=== PATIENT | male | born 1965 ===

== ENCOUNTER 2016-08-09 19:30 | Emergency (ER) | payer BC ==
[2016-08-09 19:40] VITALS: TEMP 98.1
[2016-08-09] MEDS ORDERED: Sodium Chloride 0.9% 1,000 ML IV STA ×2 (19:54→20:40)
--- NOTE | 2016-08-09 20:16 | ED PDOC ---
HPI: Back Time Seen by Provider: 08/09/16 20:14 Chief Complaint (Nursing): Back Pain Chief Complaint (Provider): back pain History Per: Patient History/Exam Limitations: no limitations Additional Complaint(s): 51yo M in ED for eval of lower back pain acute .5hrs ago-without acute injury/ fall. admits to feeling nausea admits to radiation of pain to abdominal area pt with hx fof back pain. no fever chills. Past Medical History Reviewed: Historical Data, Nursing Documentation, Vital Signs Vital Signs: Last Vital Signs Temp 98.1 F 08/09/16 19:39 Pulse Resp 24 08/09/16 19:39 BP Pulse Ox 100 08/09/16 19:39 - Medical History PMH: No Chronic Diseases - Family History Family History: States: No Known Family Hx - Home Medications Home Medications: Ambulatory Orders Medication Instructions Recorded Ciprofloxacin [Cipro] 500 mg PO BID #14 tab 08/09/16 Ondansetron [Zofran] 4 mg PO Q8H #12 tab 08/09/16 Tamsulosin [Flomax] 0.4 mg PO DAILY #14 cap 08/09/16 Tramadol HCl [Ultram] 50 mg PO Q6 #15 tab 08/09/16 - Allergies Allergies/Adverse Reactions: Allergies Allergy/AdvReac Type Severity Reaction Status Date / Time No Known Allergies Allergy Verified 08/09/16 19:53 Review of Systems ROS Statement: Except As Marked, All Systems Reviewed And Found Negative Constitutional: Negative for: Fever, Chills Gastrointestinal: Positive for: Nausea, Abdominal Pain. Negative for: Vomiting Musculoskeletal: Positive for: Back Pain Physical Exam - Reviewed Nursing Documentation Reviewed: Yes Vital Signs Reviewed: Yes - Physical Exam Appears: Positive for: Non-toxic, In Acute Distress Head Exam: Positive for: ATRAUMATIC, NORMAL INSPECTION, NORMOCEPHALIC Skin: Positive for: Normal Color, Warm, DRY Cardiovascular/Chest: Positive for: Regular Rate, Rhythm Respiratory: Positive for: CNT, Normal Breath Sounds Gastrointestinal/Abdominal: Positive for: Normal Exam, Bowel Sounds, Soft. Negative for: Tenderness Back: Positive for: R CVA Tenderness Extremity: Positive for: Normal ROM Neurologic/Psych: Positive for: Alert, Oriented - Laboratory Results Result Diagrams: 08/09/16 20:08 08/09/16 20:08 - ECG O2 Sat by Pulse Oximetry: 100 - CT Scan/US ct sccna Other Rad Studies (CT/US): Radiology Report Reviewed (1-2 mm obstructing stone. ) - Progress ED Course And Treament: Ct scan and labs torodol IV and NS Re-evaluation Time: 20:41 Condition: Improved Medical Decision Making Medical Decision Making: dx: renal stone tx: in ED given fluids, flmoax and torodol will be d/c with ultram, zofran and flomax and cipro with f.u with pmd/ urologist. Disposition - Clinical Impression Clinical Impression: Renal stone - Patient ED Disposition Is Patient to be Admitted: No Counseled Patient/Family Regarding: Studies Performed, Diagnosis, Need For Followup, Rx Given - Disposition Referrals: Richi Bergman MD [Primary Care Provider] - Brayan Story MD [Medical Doctor] - Disposition: Routine/Home Disposition Time: 20:40 Condition: STABLE Prescriptions: Ciprofloxacin [Cipro] 500 mg PO BID #14 tab Tamsulosin [Flomax] 0.4 mg PO DAILY #14 cap Tramadol HCl [Ultram] 50 mg PO Q6 #15 tab Ondansetron [Zofran] 4 mg PO Q8H #12 tab Instructions: Kidney Stones (ED) Forms: [facility] ED School/Work Excuse
[2016-08-09 20:24] LABS: BASO # 0.1 K/uL (0.0-0.2); BASO % 0.5 % (0.0-2.0); EOS # 0.1 K/uL (0.0-0.7); EOS % 0.8 % (0.0-4.0); HEMATOCRIT 45.8 % (35.0-51.0); LYMPH # 4.6 K/uL (1.0-4.3); LYMPH % 41.6 % (20.0-40.0); MEAN CELL VOLUME 97.2 fl (80.0-94.0); MEAN CORPUSCULAR HEMOGLOBIN 32.2 pg (27.0-31.0); MEAN CORPUSCULAR HGB CONC 33.1 g/dL (33.0-37.0); MEAN PLATELET VOLUME 7.1 fl (7.2-11.7); MONO % 8.7 % (0.0-10.0); NEUT # 5.4 K/uL (1.8-7.0); NEUT % 48.4 % (50.0-75.0); NRBC % 0.1 % (0.0-0.0); RED CELL DISTRIBUTION WIDTH 13.1 % (11.5-14.5); WHITE BLOOD COUNT 11.1 K/uL (4.8-10.8)
--- NOTE | 2016-08-09 20:36 | CT ---
EXAM: CT Abdomen and Pelvis Without Intravenous Contrast CLINICAL HISTORY: 51 years old, male; Pain; Abdominal pain; Flank; Right; Additional info: Right flank pain TECHNIQUE: Axial computed tomography images of the abdomen and pelvis without intravenous contrast. This CT exam was performed using one or more of the following dose reduction techniques: automated exposure control, adjustment of the mA and/or kV according to patient size, and/or use of iterative reconstruction technique. Coronal and sagittal reformatted images were created and reviewed. EXAM DATE/TIME: 08/09/2016 7:54 PM COMPARISON: No relevant prior studies available. FINDINGS: LOWER THORAX: No infiltrate seen in the lung bases. ABDOMEN: LIVER: No acute abnormality of the liver identified. GALLBLADDER AND BILE DUCTS: No CT evidence of acute cholecystitis. No evidence of significant biliary ductal dilatation. PANCREAS: No CT evidence of acute pancreatitis. SPLEEN: No acute abnormality of the spleen identified. ADRENALS: No acute abnormality of the adrenal glands identified. KIDNEYS AND URETERS: Mild right hydroureteronephrosis. This is suspected to be due to to a punctate (1-2 mm) obstructing stone at the right UVJ, seen only on the coronal reformats, image 76/series 601. Best seen on image 46 of series 602, there is an indeterminate 1.3 cm right renal lesion, arising from the right kidney upper pole posteriorly, which is not definitely a cyst given its density. Recommend follow-up renal protocol CT or MRI for further evaluation, on a nonemergent basis, unless otherwise clinically indicated. Also seen is a small low density right renal lesion, most likely a cyst. Bilateral perinephric stranding, a nonspecific finding. STOMACH AND BOWEL: Scattered colonic diverticulosis, without evidence of diverticulitis. Otherwise, no significant abnormality of the bowel is identified. No evidence of small bowel obstruction. No acute abnormality of the stomach or duodenum identified. APPENDIX: Appendix is seen, and is within normal limits in appearance. PELVIS: BLADDER: No acute abnormality of the bladder identified. REPRODUCTIVE: No acute abnormality of the reproductive organs is seen. ABDOMEN and PELVIS: INTRAPERITONEAL SPACE: No evidence of free intraperitoneal air or fluid. BONES/JOINTS: No acute fractures or other acute bony abnormality noted. SOFT TISSUES: Bilateral fat-containing inguinal hernias. Small umbilical hernia, containing only fat. VASCULATURE: No evidence of abdominal aortic aneurysm. No evidence of periaortic hemorrhage. LYMPH NODES: No evidence of diffuse lymphadenopathy. IMPRESSION: - Mild right hydroureteronephrosis, suspected to be due to a punctate (1-2 mm) obstructing stone at the right UVJ. - Otherwise, no evidence of significant acute process on this unenhanced exam. - Incidental indeterminate right renal lesion. See above recommendations. - See above for remaining findings.
[2016-08-09 20:48] LABS: ALKALINE PHOSPHATASE 71 U/L (38-126); ALT/SGPT 32 U/L (21-72); AST/SGOT 36 U/L (17-59); BILIRUBIN,TOTAL 0.6 mg/dl (0.2-1.3); BLOOD UREA NITROGEN 20 mg/dl (9-20); CALCIUM 9.7 mg/dL (8.4-10.2); CARBON DIOXIDE 28 mmol/L (22-30); CHLORIDE 102 mmol/L (98-107); GFR AFRICAN-AMERICAN > 60; GLUCOSE,RANDOM 117 mg/dL (75-110); POTASSIUM 4.6 MMOL/L (3.6-5.0); SODIUM 146 mmol/l (132-148); TOTAL PROTEIN 8.6 G/DL (6.3-8.2)
[2016-08-09 20:54] VITALS: BP 139/88; PULSE 65; RESP 18
[2016-08-09 21:11] VITALS: O2SAT 100
[2016-08-09 23:03] LABS: RBC URINE 11 /hpf (0-3); URINE BILIRUBIN NEGATIVE (NEGATIVE); URINE BLOOD MODERATE (NEGATIVE); URINE COLOR YELLOW (YELLOW); URINE GLUCOSE (UA) NEG (Normal); URINE KETONE NEGATIVE (NEGATIVE); URINE LEUKOCYTE ESTERASE NEG Leu/uL (Negative); URINE PROTEIN NEGATIVE (NEGATIVE); URINE UROBILINOGEN 0.2-1.0 mg/dL (0.2-1.0)
== END 2016-08-09 22:37 | disposition home or self-care (01) ==
LOC: H.ER 19:30
DX: N20.0 Calculus of kidney (principal)
CPT/HCPCS: 74176; 80053; 81003; 85025; 96361; 96374; 99283; J1885; J7040

== ENCOUNTER 2017-04-20 18:01 | Emergency (ER) | payer BC ==
[2017-04-20 18:21] VITALS: BP 131/83; PULSE 84; RESP 16; TEMP 99.2; O2SAT 100
--- NOTE | 2017-04-20 18:50 | ED PDOC ---
Lower Extremity Pain/Injury Time Seen by Provider: 04/20/17 18:28 Chief Complaint (Nursing): Lower Extremity Problem/Injury Chief Complaint (Provider): Right knee pain and swelling History Per: Patient History/Exam Limitations: no limitations Onset/Duration Of Symptoms: Days (x1 week) Current Symptoms Are (Timing): Still Present Additional Complaint(s): 52 y/o male presents to the emergency department with complaint of right knee pain and swelling after he twisted it about 1 week ago. Patient is able to walk but has pain when doing so. Ibuprofen has provided minimal pain relief. He made an appointment with an orthopedist but this appointment is not until May 06. He presents to emergency department for further evaluation of knee pain. No medical attention was sought at time of injury. Past Medical History Reviewed: Historical Data, Nursing Documentation, Vital Signs Vital Signs: Last Vital Signs Temp 99.2 F 04/20/17 18:17 Pulse 84 04/20/17 18:17 Resp 16 04/20/17 18:17 BP 131/83 04/20/17 18:17 Pulse Ox 100 04/20/17 18:17 - Medical History PMH: No Chronic Diseases - Surgical History Other surgeries: Left knee surgery - Family History Family History: States: No Known Family Hx - Living Arrangements Living Arrangements: With Family - Social History Current smoker - smoking cessation education provided: No Alcohol: None Drugs: Denies - Home Medications Home Medications: Ambulatory Orders Medication Instructions Recorded Ciprofloxacin [Cipro] 500 mg PO BID #14 tab 08/09/16 Ondansetron [Zofran] 4 mg PO Q8H #12 tab 08/09/16 Tamsulosin [Flomax] 0.4 mg PO DAILY #14 cap 08/09/16 Tramadol HCl [Ultram] 50 mg PO Q6 #15 tab 08/09/16 Ibuprofen [Motrin Tab] 800 mg PO Q8 PRN #20 tab 04/20/17 - Allergies Allergies/Adverse Reactions: Allergies Allergy/AdvReac Type Severity Reaction Status Date / Time No Known Allergies Allergy Verified 04/20/17 18:17 Wells Criteria for PE - Wells Criteria for Pulmonary Embolism Clinical Signs and Symptoms of DVT: No P.E is #1 Diagnosis, or Equally Likely: No Heart Rate >100: No Immobilization at least 3 days;Surgery previous 4 weeks: No Previous, objectively diagnosed PE or DVT: No Hemoptysis: No Malignancy w/treatment within 6 months, or palliative: No Total Score: 0 Review of Systems ROS Statement: Except As Marked, All Systems Reviewed And Found Negative (As per HPI, otherwise negative) Musculoskeletal: Positive for: Other (right knee twisting injury sustained 1 week ago) Physical Exam - Reviewed Nursing Documentation Reviewed: Yes Vital Signs Reviewed: Yes - Physical Exam Appears: Positive for: Well, Non-toxic, No Acute Distress Skin: Positive for: Normal Color. Negative for: Rash Extremity: Positive for: Normal ROM (Full range of motion of the right knee with pain), Tenderness (to the right knee patellar region), Swelling (to the right knee patellar region), Other (Normal distal sensation of right leg) Neurologic/Psych: Positive for: Alert, Oriented (x3) - ECG O2 Sat by Pulse Oximetry: 100 (RA) Pulse Ox Interpretation: Normal - Other Rad Right knee x-ray X-Ray: Interpreted by Me, Viewed By Me X-Ray Interpretation: no fx, no dis Medical Decision Making Medical Decision Making: Time: 1846 Initial impression: Right knee pain Initial plan: --Right knee x-ray --Reevaluation --Patient declined pain medications. Patient was offered immobilizer. He declined. Joe wrap was applied to right knee instead. Crutches declined. Advised follow-up with orthopedist as soon as possible, referral provided, prescription for ibuprofen also provided. Scribe Attestation: Documented by Kelsey Calloway, acting as a scribe for Cristiana Jay PA-C Provider Scribe Attestation: All medical record entries made by the Scribe were at my direction and personally dictated by me. I have reviewed the chart and agree that the record accurately reflects my personal performance of the history, physical exam, medical decision making, and the department course for this patient. I have also personally directed, reviewed, and agree with the discharge instructions and disposition. Procedures - Splinting Location: right knee Pre-Made Type: joe wrap Pre-Proc Neuro Vasc Exam: normal Post-Proc Neuro Vasc Exam: normal Disposition - Clinical Impression Clinical Impression: Knee pain - Patient ED Disposition Is Patient to be Admitted: No Counseled Patient/Family Regarding: Studies Performed, Diagnosis, Need For Followup, Rx Given - Disposition Referrals: Campbell Neal III, MD [Staff Provider] - Disposition: Routine/Home Disposition Time: 19:53 Condition: STABLE Additional Instructions: Ice rest and elevate affected area. Take prescription meds as directed as needed for pain. Follow-up as soon as possible with orthopedist. Prescriptions: Ibuprofen [Motrin Tab] 800 mg PO Q8 PRN #20 tab PRN Reason: Pain, Moderate (4-7) Instructions: Knee Pain (ED) Forms: [employer] ([place])
--- NOTE | 2017-04-21 08:35 | RAD ---
PROCEDURE: Right Knee Radiographs. HISTORY: trauma COMPARISON: None. FINDINGS: BONES: No acute fracture or destructive bony lesion identified. JOINTS: Joint space narrowing the medial femorotibial and patellofemoral joint compartments with trace osteophyte development is compatible with mild degenerative joint disease. JOINT EFFUSION: Trace suprapatellar bursa effusion identified. OTHER FINDINGS: None. IMPRESSION: No acute fracture or dislocation. Limited degenerative joint disease.
== END 2017-04-20 20:38 | disposition home or self-care (01) ==
LOC: H.ER 18:01
DX: M25.561 Pain in right knee (principal); X50.1XXA Overexertion from prolonged static or awkward postures, initial encounter